=== PATIENT | male | born 1950 | race Two or more races ===

== ENCOUNTER 2016-12-07 09:26 | Day surgery (SDC) | payer MEDICARE, OTHER ==
[2016-12-07] MEDS ORDERED: PROPOFOL 200 MG/20 ML BOTTLE IV ONE (09:27)
[2016-12-07] MEDS ORDERED: SEVOFLURANE 250 ML BOTTLE IH ONE (09:27)
[2016-12-07] MEDS ORDERED: ONDANSETRON 4 MG/2 ML VIAL IV ONE (09:27)
[2016-12-07] MEDS ORDERED: IV NORMAL SALINE 1000 ML BAG IV ONE (09:27)
[2016-12-07] MEDS ORDERED: LIDOCAINE-MPF 2% 5 ML VIAL MC ONE (09:27)
[2016-12-07] MEDS ORDERED: CEFAZOLIN 1 G VIAL MC ONE (09:27)
[2016-12-07] MEDS ORDERED: EPHEDRINE SULFATE 50 MG/ML AMPUL MC ONE (09:27)
[2016-12-07 10:17] LABS: *BLOOD, URINE 2+ (NEGATIVE); *CLARITY,URINE CLEAR (CLEAR); *COLOR,URINE YELLOW (YELLOW); *KETONES,URINE NEGATIVE (NEGATIVE); *PROTEIN,URINE 1+ (NEGATIVE); *UROBILINOGEN,URINE 0.2 E.U./dl (NORMAL); LEUKOCYTE ESTERASE ,URINE TRACE (NEGATIVE); NITRITE, URINE NEGATIVE (NEGATIVE); UGLUCOSE NEGATIVE (NEGATIVE)
[2016-12-07 10:27] LABS: *BILIRUBIN,URIN 1+ (NEGATIVE)
[2016-12-07 10:33] LABS: BACTERIA,URINE FEW /HPF (NONE SEEN); SQUAMOUS EPITHELIAL CELL,UR FEW /HPF (NONE SEEN)
[2016-12-07 10:34] LABS: CALCIUM OXALATE CRYSTALS,UR MODERATE /HPF (NONE SEEN); MUCUS,URINE FEW /LPF (0-FEW)
[2016-12-07] MEDS ORDERED: POLYMYXIN B SULFATE 500,000 UNITS, BACITRACIN 50,000 UNITS, NORMAL SALINE 20 ML MC ONE ×3 (11:00)
[2016-12-07] MEDS ORDERED: BUPIVACAINE PF 0.5% 30 ML VIAL ONE (11:39)
[2016-12-07] MEDS ORDERED: FENTANYL CITRATE 100 MCG/2 ML AMPUL ONE (11:49)
== END 2016-12-07 14:42 | disposition home or self-care (01) ==
LOC: DS 09:26
PROVIDERS: ATTEND Orthopaedic Surgery
DX: G56.02 Carpal tunnel syndrome, left upper limb (principal); I25.10 Atherosclerotic heart disease of native coronary artery without angina pectoris; I21.3 ST elevation (STEMI) myocardial infarction of unspecified site; F32.9 Major depressive disorder, single episode, unspecified; I10 Essential (primary) hypertension; E78.00 Pure hypercholesterolemia, unspecified; Z95.1 Presence of aortocoronary bypass graft; G47.33 Obstructive sleep apnea (adult) (pediatric); Z98.890 Other specified postprocedural states; F17.210 Nicotine dependence, cigarettes, uncomplicated
CPT/HCPCS: 36415; 71010; 85730; A4649; A4663; J0690; J2405; J3010; J3490; J7030; J7120

== ENCOUNTER 2017-06-20 09:02 | Day surgery (SDC) | payer MEDICARE, OTHER ==
[2017-06-20] MEDS ORDERED: SEVOFLURANE 250 ML BOTTLE IH ONE (09:03)
[2017-06-20] MEDS ORDERED: CEFAZOLIN 1 G VIAL MC ONE (09:03)
[2017-06-20] MEDS ORDERED: ONDANSETRON 4 MG/2 ML VIAL IV ONE (09:03)
[2017-06-20] MEDS ORDERED: EPHEDRINE SULFATE 50 MG/ML AMPUL MC ONE (09:03)
[2017-06-20] MEDS ORDERED: IV LACTATED RINGERS SOLUTION 1,000 ML BAG IV ONE (09:03)
[2017-06-20] MEDS ORDERED: DEXAMETHASONE SOD PHOSPHATE 4 MG INJ IV ONE (09:03)
[2017-06-20 09:55] LABS: *BLOOD, URINE 1+ (NEGATIVE); *COLOR,URINE YELLOW (YELLOW); *KETONES,URINE TRACE (NEGATIVE); *PROTEIN,URINE 2+ (NEGATIVE); *UROBILINOGEN,URINE 0.2 E.U./dl (NORMAL); BASOPHILS # (AUTO) 0.1 K/uL (0.0-8.0); BASOPHILS % (AUTO) 0.9 % (0.0-2.0); EOSINOPHILS # (AUTO) 0.5 K/uL (0.0-0.7); EOSINOPHILS % (AUTO) 6.1 % (0.0-7.0); HEMATOCRIT 43.8 % (36.7-47.1); HEMOGLOBIN 15.4 g/dL (12.5-16.3); LEUKOCYTE ESTERASE ,URINE TRACE (NEGATIVE); LYMPHOCYTES # (AUTO) 2.3 K/uL (20.0-40.0); LYMPHOCYTES % (AUTO) 26.5 % (20.5-51.5); MEAN CORPUSCULAR HEMOGLOBIN 33.6 uug (23.8-33.4); MEAN CORPUSCULAR HGB CONC 35 g/dL (32.5-36.3); MEAN CORPUSCULAR VOLUME 95.7 fL (73.0-96.2); MONOCYTES # (AUTO) 0.9 K/uL (2.0-10.0); NEUTROPHILS # (AUTO) 4.7 K/uL (1.8-8.9); NEUTROPHILS % (AUTO) 55.5 % (38.5-71.5); NITRITE, URINE NEGATIVE (NEGATIVE); PLATELET COUNT (AUTO) 172 K/uL (152-348); RED BLOOD CELL COUNT(AUTO) 4.58 MIL/uL (4.06-5.63); UGLUCOSE NEGATIVE (NEGATIVE); WHITE BLOOD COUNT (AUTO) 8.5 K/uL (3.6-10.2)
[2017-06-20 10:23] LABS: CREATININE 0.9 mg/dL (0.6-1.3); POTASSIUM 4.4 mmol/L (3.5-5.1)
[2017-06-20] MEDS ORDERED: POLYMYXIN B SULFATE 500,000 UNITS, BACITRACIN 50,000 UNITS, NORMAL SALINE 20 ML MC ONE ×3 (10:30)
[2017-06-20 10:33] LABS: *BILIRUBIN,URIN NEGATIVE (NEGATIVE); *CLARITY,URINE SLIGHTLY HAZY (CLEAR)
[2017-06-20 10:37] LABS: BACTERIA,URINE NONE SEEN /HPF (NONE SEEN); RBC,URINE 0-3 /HPF (0-3); SQUAMOUS EPITHELIAL CELL,UR FEW /HPF (NONE SEEN)
[2017-06-20] MEDS ORDERED: BUPIVACAINE PF 0.5% 30 ML VIAL ONE (11:07)
[2017-06-20] MEDS ORDERED: FENTANYL CITRATE 100 MCG/2 ML AMPUL ONE (11:44)
== END 2017-06-20 14:05 | disposition home or self-care (01) ==
LOC: DS 09:02
PROVIDERS: ATTEND Orthopaedic Surgery
DX: G56.01 Carpal tunnel syndrome, right upper limb (principal); I25.10 Atherosclerotic heart disease of native coronary artery without angina pectoris; J44.9 Chronic obstructive pulmonary disease, unspecified; F17.200 Nicotine dependence, unspecified, uncomplicated; I10 Essential (primary) hypertension; F32.9 Major depressive disorder, single episode, unspecified
CPT/HCPCS: 36415; 71010; 85025; 85730; A4649; A4663; J0690; J1100; J2405; J3010; J3490; J7120

== ENCOUNTER 2017-10-04 22:20 | Emergency (ER) | payer MEDICARE, OTHER ==
[~2017-10-04] VITALS: Ht 162.6 cm; Wt 77.1 kg
--- NOTE | 2017-10-04 22:45 | NUR ---
pt [id number]. ambulated into ED with steady gait, with c/o testicular pain. pt is in no acute distress. able to speak in clear and complete sentences.
--- NOTE | 2017-10-04 22:54 | NUR ---
Patient discharged to home in stable conditon. Written and verbal after care instructions given with rx. Patient verbalizes understanding of instructions.
[2017-10-04 22:55] VITALS: BP 116/71
== END 2017-10-04 22:56 | disposition home or self-care (01) ==
LOC: ER 22:20
DX: B37.9 Candidiasis, unspecified (principal); E78.5 Hyperlipidemia, unspecified; I10 Essential (primary) hypertension; Z79.02 Long term (current) use of antithrombotics/antiplatelets
CPT/HCPCS: A4663

== ENCOUNTER 2018-01-05 17:00 | Emergency (ER) | payer MEDICARE, OTHER ==
[~2018-01-05] VITALS: Ht 162.6 cm; Wt 72.6 kg
[2018-01-05 17:35] LABS: BASOPHILS % (AUTO) 0.1 % (0.0-2.0); EOSINOPHILS # (AUTO) 0.7 K/uL (0.0-0.7); EOSINOPHILS % (AUTO) 7.2 % (0.0-7.0); HEMATOCRIT 46.2 % (36.7-47.1); HEMOGLOBIN 15.4 g/dL (12.5-16.3); LYMPHOCYTES # (AUTO) 3.4 K/uL (20.0-40.0); LYMPHOCYTES % (AUTO) 34.2 % (20.5-51.5); MEAN CORPUSCULAR HEMOGLOBIN 31.7 uug (23.8-33.4); MEAN CORPUSCULAR HGB CONC 33 g/dL (32.5-36.3); MEAN CORPUSCULAR VOLUME 95.1 fL (73.0-96.2); MONOCYTES # (AUTO) 1.1 K/uL (2.0-10.0); MONOCYTES % (AUTO) 10.7 % (0.0-11.0); NEUTROPHILS # (AUTO) 4.8 K/uL (1.8-8.9); NEUTROPHILS % (AUTO) 47.8 % (38.5-71.5); PLATELET COUNT (AUTO) 180 K/uL (152-348); RED BLOOD CELL COUNT(AUTO) 4.85 MIL/uL (4.06-5.63)
[2018-01-05 17:42] LABS: CREATININE 0.8 mg/dL (0.6-1.3); POTASSIUM 3.8 mmol/L (3.5-5.1)
[2018-01-05] MEDS ORDERED: methylPREDNISolone SOD SUCC 125 MG/2 ML VIAL IV ONE (17:45)
[2018-01-05] MEDS ORDERED: ALBUTEROL SULFATE 2.5 MG/3 ML NEBU NEB ONE ×2 (17:45→19:15)
[2018-01-05] MEDS ORDERED: IPRATROPIUM BROMIDE 0.5 MG/2.5 ML NEBU NEB ONE (17:45)
[2018-01-05 17:49] LABS: BILIRUBIN,TOTAL 0.4 mg/dL (0.2-1.0); TOTAL PROTEIN, SERUM 7.1 g/dL (6.4-8.2)
[2018-01-05] MEDS ORDERED: IPRATROPIUM BROMIDE 0.5 MG/2.5 ML NEBU ONE (17:49)
[2018-01-05] MEDS ORDERED: ALBUTEROL SULFATE 2.5 MG/3 ML NEBU ONE ×3 (17:49→19:29)
[2018-01-05] MEDS ORDERED: methylPREDNISolone SOD SUCC 125 MG/2 ML VIAL ONE (17:52)
--- NOTE | 2018-01-05 18:30 | NUR ---
Patient is resting comfortably on gurney with high claudio's position, no sob seen or coughing heard at this time.
--- NOTE | 2018-01-05 19:12 | NUR ---
SBAR to nurse Kurt
--- NOTE | 2018-01-05 20:20 | NUR ---
Patient discharged to home in stable conditon. Peripheral IV was removed. Written and verbal after care instructions given. Patient verbalizes understanding of instructions. Patient able to ambulate unassisted with a steady gait. Patient left with all personal belongings.
[2018-01-05 20:25] VITALS: BP 144/77
== END 2018-01-05 20:20 | disposition home or self-care (01) ==
LOC: ER 17:01
DX: J44.1 Chronic obstructive pulmonary disease with (acute) exacerbation (principal); E78.5 Hyperlipidemia, unspecified; F17.200 Nicotine dependence, unspecified, uncomplicated; I10 Essential (primary) hypertension
CPT/HCPCS: 36415; 71045; 80053; 82550; 84484; 85025; 85610; 93005; 94640; 94644; 96374; 99285; A4663; J2930; J3590; 70030-TC

== ENCOUNTER 2018-01-17 08:10 | Day surgery (SDC) | payer MEDICARE, OTHER ==
[2018-01-17] MEDS ORDERED: ONDANSETRON 4 MG/2 ML VIAL IV ONE (08:11)
[2018-01-17] MEDS ORDERED: SEVOFLURANE 250 ML BOTTLE IH ONE (08:11)
[2018-01-17] MEDS ORDERED: DEXAMETHASONE SOD PHOSPHATE 4 MG INJ IV ONE (08:11)
[2018-01-17] MEDS ORDERED: LIDOCAINE HCL 2% 20 ML VIAL MC ONE (08:11)
[2018-01-17] MEDS ORDERED: EPHEDRINE SULFATE 50 MG/ML AMPUL MC ONE (08:11)
[2018-01-17] MEDS ORDERED: CEFAZOLIN 1 G VIAL IV ONE (08:11)
[2018-01-17] MEDS ORDERED: PROPOFOL 200 MG/20 ML BOTTLE IV ONE (08:11)
[2018-01-17] MEDS ORDERED: POLYMYXIN B SULFATE 500,000 UNITS, BACITRACIN 50,000 UNITS, NORMAL SALINE 20 ML MC ONE ×3 (08:15)
[2018-01-17 08:45] LABS: BASOPHILS # (AUTO) 0.1 K/uL (0.0-8.0); BASOPHILS % (AUTO) 1.4 % (0.0-2.0); EOSINOPHILS # (AUTO) 0.5 K/uL (0.0-0.7); EOSINOPHILS % (AUTO) 5.2 % (0.0-7.0); HEMATOCRIT 46.5 % (36.7-47.1); HEMOGLOBIN 16.1 g/dL (12.5-16.3); LYMPHOCYTES # (AUTO) 2.9 K/uL (20.0-40.0); LYMPHOCYTES % (AUTO) 31.4 % (20.5-51.5); MEAN CORPUSCULAR HEMOGLOBIN 33.2 uug (23.8-33.4); MEAN CORPUSCULAR HGB CONC 35 g/dL (32.5-36.3); MEAN CORPUSCULAR VOLUME 95.5 fL (73.0-96.2); MONOCYTES # (AUTO) 0.8 K/uL (2.0-10.0); MONOCYTES % (AUTO) 8.5 % (0.0-11.0); NEUTROPHILS # (AUTO) 4.9 K/uL (1.8-8.9); NEUTROPHILS % (AUTO) 53.5 % (38.5-71.5); PLATELET COUNT (AUTO) 169 K/uL (152-348); RED BLOOD CELL COUNT(AUTO) 4.87 MIL/uL (4.06-5.63); WHITE BLOOD COUNT (AUTO) 9.1 K/uL (3.6-10.2)
--- NOTE | 2018-01-17 08:50 | NUR ---
PT GIVEN ALBUTEROL TX PER DR. JACOBO'S ORDER. ORDER NOT IN [facility], BUT IS PRINTED STAT AND IS IN ORDER HISTORY ON [employer]. NURSES AT BEDSIDE WHEN MEDICATION WAS GIVEN.
[2018-01-17 08:51] LABS: *BILIRUBIN,URIN NEGATIVE (NEGATIVE); *BLOOD, URINE 1+ (NEGATIVE); *CLARITY,URINE SLIGHTLY HAZY (CLEAR); *COLOR,URINE YELLOW (YELLOW); *KETONES,URINE NEGATIVE (NEGATIVE); *PROTEIN,URINE 1+ (NEGATIVE); *UROBILINOGEN,URINE 0.2 E.U./dl (NORMAL); LEUKOCYTE ESTERASE ,URINE 1+ (NEGATIVE); NITRITE, URINE NEGATIVE (NEGATIVE); UGLUCOSE NEGATIVE (NEGATIVE)
[2018-01-17] MEDS ORDERED: ALBUTEROL SULFATE 2.5 MG/3 ML NEBU ONE (08:52)
[2018-01-17 08:53] LABS: CREATININE 0.8 mg/dL (0.6-1.3); POTASSIUM 4.3 mmol/L (3.5-5.1)
[2018-01-17 08:59] LABS: BACTERIA,URINE NONE SEEN /HPF (NONE SEEN); SQUAMOUS EPITHELIAL CELL,UR FEW /HPF (NONE SEEN)
[2018-01-17 09:02] LABS: MUCUS,URINE FEW /LPF (0-FEW)
[2018-01-17] MEDS ORDERED: BUPIVACAINE PF 0.5% 30 ML VIAL ONE (09:49)
[2018-01-17] MEDS ORDERED: TRAMADOL HCL 50 MG TABLET ONE (11:57)
== END 2018-01-17 12:45 | disposition home or self-care (01) ==
LOC: DS 08:10
PROVIDERS: ATTEND Orthopaedic Surgery
DX: S63.601A Unspecified sprain of right thumb, initial encounter (principal); X58.XXXA Exposure to other specified factors, initial encounter; Y93.9 Activity, unspecified; Y92.89 Other specified places as the place of occurrence of the external cause; Y99.9 Unspecified external cause status; J44.9 Chronic obstructive pulmonary disease, unspecified; Z87.891 Personal history of nicotine dependence; I10 Essential (primary) hypertension; E78.00 Pure hypercholesterolemia, unspecified; I25.10 Atherosclerotic heart disease of native coronary artery without angina pectoris; Z95.5 Presence of coronary angioplasty implant and graft; E66.9 Obesity, unspecified; Z79.899 Other long term (current) drug therapy; F41.9 Anxiety disorder, unspecified; Z98.890 Other specified postprocedural states
CPT/HCPCS: 36415; 71045; 85025; 85730; 94664; A4649; A4663; J0690; J1100; J2405; J3490; J7120

== ENCOUNTER 2018-07-31 04:22 | Inpatient (IN) | payer MEDICARE, OTHER ==
[~2018-07-31] VITALS: Ht 162.6 cm; Wt 78.5 kg
[2018-07-31] MEDS ORDERED: predniSONE 10 MG TABLET ONE (04:47)
[2018-07-31] MEDS ORDERED: predniSONE 50 MG TABLET ONE (04:47)
[2018-07-31] MEDS ORDERED: ALBUTEROL SULFATE 2.5 MG/3 ML NEBU ONE ×2 (04:51→05:14)
[2018-07-31] MEDS ORDERED: IPRATROPIUM BROMIDE 0.5 MG/2.5 ML NEBU ONE (04:52)
[2018-07-31] MEDS ORDERED: OXYCODONE/APAP 5-325 MG TABLET ONE (05:50)
[2018-07-31] MEDS ORDERED: ASPIRIN 81 MG TAB.CHEW ONE (05:51)
[2018-07-31] MEDS ORDERED: NITROGLYCERIN OINT 1 GM PACKET TP ONE (05:52)
--- NOTE | 2018-07-31 06:48 | NUR ---
sEE DOWN TIME PAPAER WORK
--- NOTE | 2018-07-31 06:52 | NUR ---
REGINO TO 2ND FLOOR VIA [facility]
--- NOTE | 2018-07-31 07:30 | NUR ---
Received this admission from ER, 67 yo male with the chief complaint of cold and cough, with the diagnosis of NSTEMI. Placed on tele SR. Routine admission care rendered. Awake, alert, oriented x 4, Farsi speaking. at bedside, supportive and translate. Ambulatory. Denies chest pain.
[2018-07-31] MEDS ORDERED: HYDROCODONE/APAP 5-325MG TABLET PO PRN (09:45)
[2018-07-31] MEDS ORDERED: ACETAMINOPHEN 325 MG TABLET PO PRN (09:45)
[2018-07-31] MEDS ORDERED: ONDANSETRON 4 MG/2 ML VIAL IV PRN (09:45)
[2018-07-31] MEDS ORDERED: MORPHINE SULFATE 4 MG/1 ML DISP.SYRIN IV PRN (09:45)
[2018-07-31 09:57] LABS: BILIRUBIN,TOTAL 0.5 mg/dL (0.2-1.0); CREATININE 0.8 mg/dL (0.6-1.3); POTASSIUM 3.8 mmol/L (3.5-5.1); TOTAL PROTEIN, SERUM 7.7 g/dL (6.4-8.2)
[2018-07-31 09:58] LABS: BASOPHILS # (AUTO) 0.1 K/uL (0.0-8.0); EOSINOPHILS # (AUTO) 0.5 K/uL (0.0-0.7); EOSINOPHILS % (AUTO) 4.8 % (0.0-7.0); HEMATOCRIT 45.7 % (36.7-47.1); HEMOGLOBIN 15.6 g/dL (12.5-16.3); LYMPHOCYTES # (AUTO) 3.1 K/uL (20.0-40.0); LYMPHOCYTES % (AUTO) 27.8 % (20.5-51.5); MEAN CORPUSCULAR HEMOGLOBIN 33.1 uug (23.8-33.4); MEAN CORPUSCULAR HGB CONC 34 g/dL (32.5-36.3); MEAN CORPUSCULAR VOLUME 96.9 fL (73.0-96.2); MONOCYTES # (AUTO) 1.3 K/uL (2.0-10.0); MONOCYTES % (AUTO) 11.7 % (0.0-11.0); NEUTROPHILS # (AUTO) 6.1 K/uL (1.8-8.9); NEUTROPHILS % (AUTO) 54.7 % (38.5-71.5); PLATELET COUNT (AUTO) 188 K/uL (152-348); RED BLOOD CELL COUNT(AUTO) 4.71 MIL/uL (4.06-5.63); WHITE BLOOD COUNT (AUTO) 11.1 K/uL (3.6-10.2)
[2018-07-31] MEDS: PANTOPRAZOLE SODIUM 40 MG TABLET.DR PO SCH (10:13)
[2018-07-31 11:06] VITALS: BP 124/72
--- NOTE | 2018-07-31 15:00 | NUR ---
Dr. Stubbs seen patient for cardiology consult, spoke with .
[2018-07-31 15:01] VITALS: BP 142/69
[2018-07-31] MEDS ORDERED: IPRATROPIUM BROMIDE 0.5 MG/2.5 ML NEBU NEB PRN (15:45)
[2018-07-31] MEDS ORDERED: LISI40TA4 PO (15:48)
[2018-07-31] MEDS ORDERED: ATOR40TA PO (15:48)
[2018-07-31] MEDS ORDERED: AMLO10TA7 PO (15:48)
[2018-07-31] MEDS ORDERED: ASPI81TA31 PO (15:52)
[2018-07-31] MEDS ORDERED: CLOP75TA33 PO (15:52)
[2018-07-31] MEDS ORDERED: TRAZ-182 PO (15:52)
[2018-07-31] MEDS ORDERED: METO50TA16 PO (15:52)
[2018-07-31] MEDS ORDERED: ASPIRIN 81 MG TAB.CHEW PO SCH (16:00)
[2018-07-31] MEDS: ASPIRIN 81 MG TAB.CHEW PO SCH (16:50)
[2018-07-31] MEDS: methylPREDNISolone SOD SUCC 40 MG/ML VIAL IV SCH ×2 (16:50→21:10)
[2018-07-31] MEDS: CLOPIDOGREL 75 MG TABLET PO SCH (16:51)
[2018-07-31] MEDS: AMLODIPINE 10 MG TABLET PO SCH (16:51)
[2018-07-31] MEDS: LISINOPRIL 20 MG TABLET PO SCH (16:51)
[2018-07-31] MEDS: HYDROCODONE/APAP 5-325MG TABLET PO PRN (16:52)
--- NOTE | 2018-07-31 16:52 | NUR ---
Complained of headache, [place] po given with relief
--- NOTE | 2018-07-31 17:00 | NUR ---
Noted shortness of breath on exertion. Placed on O2 at 2L/NC
[2018-07-31] MEDS ORDERED: ATORVASTATIN 40 MG TABLET PO SCH (18:00)
--- NOTE | 2018-07-31 18:00 | NUR ---
Ambulating in the hallway with , not in distress.
[2018-07-31 19:00] VITALS: BP 125/80
--- NOTE | 2018-07-31 19:25 | NUR ---
RECEIVED PT AWAKE, ALERT AND ORIENTEDX4. AT BEDSIDE. PT FARSI SPEAKING BUT KNOWS A LITTLE GEORGIAN.PT ON 2L NASAL CANNULA. PT SHOWS NO SIGNS OF ACUTE DISTRESS. PT IV INTACT.CALL LIGHT WITHIN REACH. SAFETY AND COMFORT PROVIDED. WILL CONTINUE TO MONITOR.
[2018-07-31] MEDS: TRAZODONE 50 MG TABLET PO SCH (20:08)
[2018-07-31] MEDS: ATORVASTATIN 40 MG TABLET PO SCH (20:08)
[2018-07-31] MEDS: METOPROLOL TARTRATE 50 MG TABLET PO SCH (20:14)
[2018-07-31] MEDS: ALBUTEROL SULFATE 2.5 MG/ 0.5 ML NEBU NEB PRN (22:39)
[2018-07-31] MEDS ORDERED: ACETYLCYSTEINE 20% 800 MG/4 ML VIAL NEB PRN (23:00)
[2018-08-01] VITALS: BP 140/67
[2018-08-01] MEDS: ZOLPIDEM 5 MG TABLET PO PRN ×2 (00:07→22:15)
[2018-08-01 04:00] VITALS: BP 113/62
[2018-08-01] MEDS: PANTOPRAZOLE SODIUM 40 MG TABLET.DR PO SCH (06:07)
[2018-08-01] MEDS: methylPREDNISolone SOD SUCC 40 MG/ML VIAL IV SCH (06:07)
--- NOTE | 2018-08-01 06:13 | NUR ---
PT SLEPT THROUGHOUT THE SHIFT. PT SHOWS NO SIGNS OF ACUTE DISTRESS. ONE BREATHING TREATMENT DONE FOR THE PT.PRESCRIBED MEDICATION GIVEN AND PT TOLERATED IT WELL. CALL LIGHT WITHIN REACH. BED ALARM. SAFETY AND COMFORT PROVIDED. ALL NEEDS ARE MET.WILL ENDORSE ACCORDINGLY TO INCOMING NURSE FOR CONTINUITY OF CARE.
[2018-08-01 06:37] LABS: BASOPHILS % (AUTO) 0.2 % (0.0-2.0); HEMATOCRIT 44.5 % (36.7-47.1); LYMPHOCYTES # (AUTO) 1.3 K/uL (20.0-40.0); LYMPHOCYTES % (AUTO) 7.4 % (20.5-51.5); MEAN CORPUSCULAR HEMOGLOBIN 32.8 uug (23.8-33.4); MEAN CORPUSCULAR HGB CONC 34 g/dL (32.5-36.3); MONOCYTES # (AUTO) 0.5 K/uL (2.0-10.0); MONOCYTES % (AUTO) 3.2 % (0.0-11.0); NEUTROPHILS # (AUTO) 15.3 K/uL (1.8-8.9); NEUTROPHILS % (AUTO) 89.2 % (38.5-71.5); PLATELET COUNT (AUTO) 183 K/uL (152-348); RED BLOOD CELL COUNT(AUTO) 4.58 MIL/uL (4.06-5.63); WHITE BLOOD COUNT (AUTO) 17.1 K/uL (3.6-10.2)
[2018-08-01 06:45] LABS: CREATININE 0.9 mg/dL (0.6-1.3); MAGNESIUM 1.7 mg/dL (1.8-2.4); PHOSPHOROUS 2.7 mg/dL (2.5-4.9); POTASSIUM 3.6 mmol/L (3.5-5.1)
--- NOTE | 2018-08-01 07:00 | NUR ---
RECEIVED A CALL FROM [facility]ICAL LAB OF 308 GLUCOSE. ENDORSE TO INCOMING NURSE . CHARGE NURSE AWARE.
[2018-08-01] MEDS: ALBUTEROL SULFATE 2.5 MG/ 0.5 ML NEBU NEB PRN (07:21)
--- NOTE | 2018-08-01 07:50 | NUR ---
Received report for patient from GAYATHRI Beckwith. RN stated patient had critical lab value of glucose 308. Called and paged Dr. Ruffin. Will follow up and wait for orders.
[2018-08-01] MEDS: ASPIRIN 81 MG TAB.CHEW PO SCH (08:26)
[2018-08-01] MEDS: CLOPIDOGREL 75 MG TABLET PO SCH (08:26)
[2018-08-01] MEDS: LISINOPRIL 20 MG TABLET PO SCH (08:28)
[2018-08-01] MEDS: METOPROLOL TARTRATE 50 MG TABLET PO SCH (08:28)
[2018-08-01] MEDS: NICOTINE 14 MG/24HR PATCH TD SCH (08:31)
--- NOTE | 2018-08-01 09:17 | NUR ---
Notified Dr. Ruffin about blood glucose. Checked patient blood sugar again and results in 312. Dr. Ruffin prder 15 units of Regular Insulin One time. Order has been placed. Will administer to patient once received from pharmacy.
[2018-08-01] MEDS: AMLODIPINE 10 MG TABLET PO SCH (09:24)
[2018-08-01] MEDS ORDERED: INSULIN REGULAR, HUMAN 300 UNIT/3 ML VIAL SQ ONE (10:09)
--- NOTE | 2018-08-01 10:22 | NUR ---
followed up with Pharmacy, pending verification and medication.
[2018-08-01] MEDS ORDERED: FUROSEMIDE 20 MG/2 ML VIAL IV ONE (11:00)
[2018-08-01 11:20] VITALS: BP 146/67
--- NOTE | 2018-08-01 11:53 | NUR ---
reassed patient blood glucose after adminstering insulin. Patient BS resulted in 305. Dr. Klein has been notified and will place new orders. Patient is asymptomatic at this time.
[2018-08-01] MEDS ORDERED: DEXTROSE 50% 50 ML DISP.SYRIN IV PRN (13:15)
[2018-08-01] MEDS ORDERED: POTASSIUM CHLORIDE 20 MEQ TAB.PRT.SR PO ONE (14:04)
[2018-08-01] MEDS: MAGNESIUM SULFATE/D5W 100 ML IV SCH ×2 (14:25→15:29)
[2018-08-01] MEDS: IPRATROPIUM BROMIDE 0.5 MG/2.5 ML NEBU NEB SCH ×2 (14:48→19:13)
[2018-08-01] MEDS: ALBUTEROL SULFATE 2.5 MG/3 ML NEBU NEB SCH ×2 (14:48→19:13)
[2018-08-01 15:10] VITALS: BP 137/67
[2018-08-01] MEDS: BLOOD SUGAR DIAGNOSTIC 1 EACH STRIP VI SCH ×2 (15:31→20:41)
[2018-08-01] MEDS: INSULIN REGULAR, HUMAN 300 UNIT/3 ML VIAL SQ PRN ×2 (15:35→20:49)
[2018-08-01] MEDS: GUAIFENESIN/DEXTROMETHORPHAN TAB.SR.12H PO SCH ×2 (15:41→20:37)
--- NOTE | 2018-08-01 15:42 | NUR ---
patient blood sugar remains elevated but is trending downwards. Patient denies any symptoms of respiratory distress or pain/ Patients vital signs are within normal limits. Patient is alert and oriented. Patient skin is within normal limits without moisture. Will continue to monitor.
--- NOTE | 2018-08-01 16:10 | NUR ---
Notified Dr. Ruffin about patient blood sugar still be elevated. Dr. Ruffin has order to discontinue steroids. Will continue to monitor patient closely.
[2018-08-01 16:27] LABS: *BILIRUBIN,URIN NEGATIVE (NEGATIVE); *BLOOD, URINE Trace-intact (NEGATIVE); *CLARITY,URINE CLEAR (CLEAR); *COLOR,URINE YELLOW (YELLOW); *KETONES,URINE TRACE (NEGATIVE); *UROBILINOGEN,URINE 0.2 E.U./dl (NORMAL); LEUKOCYTE ESTERASE ,URINE NEGATIVE (NEGATIVE); NITRITE, URINE NEGATIVE (NEGATIVE); PH,URINE 6.5 (5.0-8.0); UGLUCOSE 2+ (NEGATIVE)
[2018-08-01 16:38] LABS: MUCUS,URINE FEW /LPF (0-FEW); WBC,URINE 0-3 /HPF (0-3)
[2018-08-01] MEDS: HYDROCODONE/APAP 5-325MG TABLET PO PRN (17:13)
[2018-08-01] MEDS: THIAMINE HCL 100 MG TABLET PO SCH (18:29)
--- NOTE | 2018-08-01 18:38 | NUR ---
Patient has been laying in bed. Patient complains of a headache. Patient has been receiving tylenol and manages the pain. Patient blood glucose have been in high levels but is being monitored and Dr. Ruffin has been notified. Patient is able to verbalize needs and needs have been met. Patient's family have been with the patient. Patient denies any respiratory distress with the nasal canula running with 2L oxygen. Will continue to monitor the patient and endorse plan of care to night order selector.
--- NOTE | 2018-08-01 19:40 | NUR ---
RECEIVED PATIENT LYING IN BED. ALERT AND ORIENTED. NO SIGNS OF ACUTE DISTRESS. NO COMPLAINTS OF SOB OR PAIN. IV HEPLOCK ON THE RIGHT WRIST IS INTACT. SAFETY MEASURES GIVEN. BED IS LOW AND LOCKED, CALL LIGHT IS WITHIN REACH. WILL CONTINUE TO MONITOR.
[2018-08-01 20:14] VITALS: BP 122/68
[2018-08-01] MEDS: ATORVASTATIN 40 MG TABLET PO SCH (20:37)
[2018-08-01] MEDS: TRAZODONE 50 MG TABLET PO SCH (20:37)
[2018-08-01] MEDS ORDERED: methylPREDNISolone SOD SUCC 40 MG/ML VIAL IV SCH (21:00)
[2018-08-02] MEDS: HYDROCODONE/APAP 5-325MG TABLET PO PRN (00:57)
[2018-08-02 05:54] VITALS: BP 130/79
[2018-08-02] MEDS: PANTOPRAZOLE SODIUM 40 MG TABLET.DR PO SCH (06:32)
--- NOTE | 2018-08-02 06:37 | NUR ---
PATIENT HAD NO SIGNS OF ACUTE DISTRESS. HAD TROUBLE FALLING ASLEEP DUE TO COUGHING. GAVE PRN AMBIEN AT 2215H AND NORCO AT 0057H WITH LITTLE EFFECT. OFFERED TO DO ANOTHER PRN BREATHING TREATMENT, BUT REFUSED. PATIENT WAS ABLE TO EVENTUALLY FALL ASLEEP. ALL MEDICATIONS WERE GIVEN ORDERED. BREATHING TREATMENT DONE ORDERED. SAFETY MEASURES GIVEN.
[2018-08-02 06:39] LABS: CREATININE 0.8 mg/dL (0.6-1.3); MAGNESIUM 2.2 mg/dL (1.8-2.4); PHOSPHOROUS 2.9 mg/dL (2.5-4.9)
[2018-08-02] MEDS: BLOOD SUGAR DIAGNOSTIC 1 EACH STRIP VI SCH ×3 (06:50→16:59)
[2018-08-02 07:08] LABS: BASOPHILS % (AUTO) 0.1 % (0.0-2.0); EOSINOPHILS % (AUTO) 0.3 % (0.0-7.0); HEMATOCRIT 44.2 % (36.7-47.1); HEMOGLOBIN 14.8 g/dL (12.5-16.3); LYMPHOCYTES # (AUTO) 2.3 K/uL (20.0-40.0); LYMPHOCYTES % (AUTO) 13.5 % (20.5-51.5); MEAN CORPUSCULAR HEMOGLOBIN 32.6 uug (23.8-33.4); MEAN CORPUSCULAR HGB CONC 34 g/dL (32.5-36.3); MEAN CORPUSCULAR VOLUME 97.5 fL (73.0-96.2); MONOCYTES # (AUTO) 1.5 K/uL (2.0-10.0); MONOCYTES % (AUTO) 8.7 % (0.0-11.0); NEUTROPHILS % (AUTO) 77.4 % (38.5-71.5); PLATELET COUNT (AUTO) 185 K/uL (152-348); RED BLOOD CELL COUNT(AUTO) 4.53 MIL/uL (4.06-5.63); WHITE BLOOD COUNT (AUTO) 16.7 K/uL (3.6-10.2)
[2018-08-02] MEDS: ALBUTEROL SULFATE 2.5 MG/3 ML NEBU NEB SCH ×3 (08:37→15:59)
[2018-08-02] MEDS: IPRATROPIUM BROMIDE 0.5 MG/2.5 ML NEBU NEB SCH ×3 (08:37→15:59)
[2018-08-02 08:42] LABS: ABG BASE EXCESS 1.9 mmol/L; ABG HCO3 26.6 mmol/L; ABG PCO2 41.5 mmHg (35.0-45.0); ABG PH 7.424 (7.350-7.450); ABG SITE RIGHT RADIAL; ABG TOTAL HEMOGLOBIN 15.8 G/dL (13.5-18.0); COHb 1.5 % (0.5-1.5); MetHb 0.3 % (0.0-1.5); O2Hb 93.6 % (94.0-97.0); VENT MODE ROOM AIR
[2018-08-02] MEDS ORDERED: FOLIC ACID/VITAMIN B COMP W-C TABLET PO SCH (09:00)
[2018-08-02] MEDS: CLOPIDOGREL 75 MG TABLET PO SCH (09:04)
[2018-08-02] MEDS: LISINOPRIL 20 MG TABLET PO SCH (09:04)
[2018-08-02] MEDS: THIAMINE HCL 100 MG TABLET PO SCH (09:04)
[2018-08-02] MEDS: GUAIFENESIN/DEXTROMETHORPHAN TAB.SR.12H PO SCH (09:05)
[2018-08-02] MEDS: AMLODIPINE 10 MG TABLET PO SCH (09:05)
[2018-08-02] MEDS: ASPIRIN 81 MG TAB.CHEW PO SCH (09:05)
[2018-08-02] MEDS: NICOTINE 14 MG/24HR PATCH TD SCH (09:06)
[2018-08-02] MEDS: INSULIN REGULAR, HUMAN 300 UNIT/3 ML VIAL SQ PRN ×3 (09:15→17:03)
[2018-08-02 11:02] VITALS: BP 125/64
--- NOTE | 2018-08-02 12:20 | NUR ---
PATIENT LEFT UNIT FOR MRI [facility] VIA AM[facility]ULANCE . Addendum: 08/02/18 at 1230 by ARIELA PERALTA RN DISREGARD NOTE, INCORRECT PATIENT
[2018-08-02 15:15] VITALS: BP 147/54
--- NOTE | 2018-08-02 17:10 | NUR ---
patient requesting to see MD for discharge, verbalized will leave AMA if MD does not arrive to discharge him by 1730. Dr Ruffin paged thru exchange, waiting for return call. IV site removed per patient request.
--- NOTE | 2018-08-02 17:25 | NUR ---
patient educated on leaving against AMA and not leaving physician, patient also advised we will not be able to provide prescriptions until MD comes to see patient. patient does not care, refuses to await requested to leave AMA
--- NOTE | 2018-08-02 17:35 | NUR ---
Patient continues to request to leave AMA at this time, patient educated continues to refuse to wait. patient provided with AMA form, patient advised to follow up with PCP and Deputy Director Of Nursing beginning of the week, patient verbalized understanding. patient with with she also verbalized understanding. Belongings accounted for. ID band removed, IV site was already removed.
== END 2018-08-02 17:40 | disposition left against medical advice (07) | DRG 190 ==
LOC: ER 04:22 → TELE 06:53 → MED 08-01 09:47
PROVIDERS: ADMIT Nurse Practitioner Acute Care; ATTEND Internal Medicine
DX: I21.4 Non-ST elevation (NSTEMI) myocardial infarction (principal); J44.1 Chronic obstructive pulmonary disease with (acute) exacerbation; I11.9 Hypertensive heart disease without heart failure; E09.9 Drug or chemical induced diabetes mellitus without complications; F17.210 Nicotine dependence, cigarettes, uncomplicated; I25.10 Atherosclerotic heart disease of native coronary artery without angina pectoris; Z79.82 Long term (current) use of aspirin; Z79.899 Other long term (current) drug therapy; K43.9 Ventral hernia without obstruction or gangrene; T38.0X5A Adverse effect of glucocorticoids and synthetic analogues, initial encounter; Y92.9 Unspecified place or not applicable; F10.20 Alcohol dependence, uncomplicated; Y90.9 Presence of alcohol in blood, level not specified; Z79.02 Long term (current) use of antithrombotics/antiplatelets; Z95.5 Presence of coronary angioplasty implant and graft
CPT/HCPCS: 36415; 36600; 70030-TC; 71045; 83735; 84100; 85025; 85730; 87040; 87070; 93307; 94640; 94664; G0378; J1815; J1940; J2920; J3475; J3590; J7050; J7512